=== PATIENT | male | born 1955 | race Caucasian/White ===

== ENCOUNTER 2017-07-02 13:50 | Observation (INO) | payer BC ==
[~2017-07-02] VITALS: Ht 182.9 cm; Wt 110.7 kg
--- NOTE | ~2017-07-02 | ECH ---
Transthoracic Echocardiography Report (TTE) Demographics Patient Name SABRINA DARBY Date of Study 07/03/2017 Patient Number [id number] Visit Number [id number] Date of 1955 Room Number 427 Accession Number [id number] Gender Male Age 61 year(s) Referring Dereck Badillo Manager Intermediate Kayla Huerta [facility] Physician Physician Interpreting Dereck Sung Segmental Wall Installer Physician MD Supervising Ordering Physician Khushi RICHEY MD/MLP Nurse Stress Base Loader Conclusions Summary Technically adequate exam. The estimated left ventricular ejection fraction is 60-65%. Mild left ventricular hypertrophy. Procedure Type of Study TTE procedure Procedure Date Date: 07/03/2017 Start: 10:42 AM Technical Quality: Adequate visualization Indications:Atypical Chest Pain. Appropriate Use Criteria: 9 Height: 72 inches Weight: 244 pounds BSA: 2.32 m Rhythm: Within normal limits HR: 80 bpm BP: 160/101 mmHg M-Mode/2D Measurements LV Diastolic Dimension: 4.49 cm LV Systolic Dimension: 3.03 cm LV Septum Diastolic: 1.39 cm LV PW Diastolic: 1.13 cm AO Root Dimension: 3.18 cm Cardiac Output: 5.19 l/min LA Dimension: 3.8 cm Cardiac Index: 2.24 l/min*m RV Diastolic Dimension: 3.47 cm LA volume index: 19 ml/m LVOT: 2.31 cm LVOT VTI: 15.49 cm RV Base: 3 cm LV Stroke volume: 64.89 ml RV Mid: 1.8 cm LV Stroke volume index: 27.97 ml/m RV Length: 7.3 cm TAPSE: 1.9 cm TDI-S': 14 cm/s Doppler Measurements AV Peak Velocity: 1.01 m/s MV Peak E-Wave: 0.54 m/s AV Peak Gradient: 4.05 mmHg MV Peak A-Wave: 0.62 m/s AV Mean Gradient: 2.4 mmHg MV E/A Ratio: 0.87 LVOT Peak Velocity: 0.76 m/s MV P1/2t: 79.7 msec AV Area (Continuity):3.25 cm MV Deceleration Time: 261.1 msec MV Area (PHT): 2.76 cm PV Peak Velocity: 1.32 m/s E' Septal Velocity: 0.09 m/s PV Peak Gradient: 6.97 mmHg E' Lateral Velocity: 0.09 m/s RA Area: 12.41 cm Findings Left Ventricle The left ventricle is normal in size . Mild left ventricular hypertrophy. Diastolic function indeterminate. Right Ventricle Normal right ventricle structure and function. Left Atrium Normal left atrial size. Right Atrium Normal right atrial size. Mitral Valve Normal mitral valve structure and function. Aortic Valve Normal aortic valve structure and function. Tricuspid Valve Normal tricuspid valve structure and function. Trivial tricuspid regurgitation by color Doppler. Pulmonic Valve The pulmonic valve is not well visualized. No pulmonic valve regurgitation by color Doppler. Pericardial Effusion No evidence of pericardial effusion. Miscellaneous Visualized portions of the aortic root and ascending aorta appear normal in size. Pleural Effusion No evidence of pleural effusion. Contractility Score LV regional wall motion:(0-Non visualized 1-Normal 2-Hypokinesis 3-Akinesis 4-Dyskinesis 5-Aneurysm) Signature
--- NOTE | ~2017-07-02 | CO ---
ADMIT: 07/02/2017 RM/LOC: 427 [facility] MR#: [id number] [address] [address] SABRINA DARBY [address] [place] [id number] Consultation SEX: M AGE: 61 : 1955 DATE OF CONSULTATION: 07/03/2017 ATTENDING PHYSICIAN: Ronald Hardne MD CONSULTING PHYSICIAN: Jhonny Peck MD HISTORY OF PRESENT ILLNESS: The patient is a 61-year-old male, who presents to [facility] with chief complaint of chest pain. The patient states that the chest pain started approximately 4 or 5 days ago and is exertional in origin. 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 He states that before work every morning chest pain is absent; however, as the day progresses at his job, chest pain does re-present and lingers throughout the rest of the day. He describes the chest pain, rating it at 4 to 5, associated with some diaphoresis, shortness of breath, and some radiation through the shoulders. He otherwise has a negative cardiac history, so he is not able to take nitroglycerin at home for the pain; however, he does state that he takes NSAIDs in the form of Aleve 2 tabs every day, which does not provide relief. He also states that he has never been diagnosed with GERD, and that this chest pain is not related to food intake, but he does do [id number] treatment in the form of Maalox and Rolaids, neither of which provided significant relief. This past Friday, he stated that his chest pain was worse than it had been and was lingering longer than it normally did, so he presented to a local urgent care clinic, who subsequently sent him to the [facility]. In the ED, a chest pain protocol was initiated. Electrolytes and renal function were within normal limits. Troponin was negative. Creatine kinase was elevated at 629. MB was elevated at 9.5. Chest x-ray was also completed, which was a negative review. CBC was within normal limits. He was subsequently admitted for rule out cardiac pathology. This morning, patient denies significant chest pain, shortness of breath, palpitations, edema, or syncopal episodes. EKG was completed early this morning and was indicative of normal sinus rhythm with borderline left axis deviation, not suspicious for acute pathology. CK and MB were also drawn this morning, which have been shown to be trending down with creatine kinase being 418, and MB being 6.2. Troponin is still within normal limits. The patient otherwise has no acute questions or concerns at this time. PAST MEDICAL HISTORY: Pertinent for: 1. Hypertension. 2. Hyperlipidemia. 3. Chronic low back pain. 4. Recurrent nephrolithiasis. 5. Nonorganic sleep apnea. 6. History of seizure disorder. 7. BPH. PAST SURGICAL HISTORY: Pertinent for lumbar fusion L4-L5 in 2013, as well as multiple stents, and shockwave lithotripsy for kidney stones. ADMIT: 07/02/2017 RM/LOC: 427 [facility] MR#: [id number] [address] [place] [id number] SABRINA DARBY [address] [place] [address] Consultation SEX: M AGE: 61 : 1955 FAMILY HISTORY: Noncontributory for cardiac pathology. SOCIAL HISTORY: The patient is , and he and his live here in [place]. As stated above, he works for the [employer]. Alcohol: The patient has been sober for over 30 years for which he said he would drink approximately a six-pack per night. He also quit smoking approximately 30 years ago with habit of a pack a day for approximately two years. He does also have a history of illicit drug abuse. He mentions marijuana, LSD, speed, and "whatever else he could get his hands on at that time." He had never injected drugs. Only states that he would snort or take tablets. He has been clean for the past 30 years as well. MEDICATIONS: 1. Flomax 0.4 mg daily. 2. Flonase 1 spray daily p.r.n. 3. Fish oil 1000 mg daily. 4. Olopatadine 0.1% one GTT b.i.d. p.r.n. 5. Colace 100 mg b.i.d. p.r.n. 6. Maalox 30 mL q.6 p.r.n. 7. Tylenol 650 mg q.4 p.r.n. ALLERGIES: NO KNOWN ALLERGIES. REVIEW OF SYSTEMS: Per Dr. Jhonny Peck: GENERAL: Denies fatigue, fever, chills, sweats, rash, or weight loss. EYES: Denies double vision, blurred vision, cataracts, or glaucoma. ENT: Denies hearing loss or problems with nose, mouth or throat. PULMONARY: Denies cough, sputum production, asthma, emphysema or bronchitis. Denies snoring loudly, wakefulness at night, or fatigue upon awakening. The patient has mild chest pain. GASTROINTESTINAL: Denies heartburn or difficulty swallowing. No change in bowel habits. Denies dark or bloody stools. No history of ulcers, hiatal hernia, or gallbladder or liver disease. GENITOURINARY: Denies dysuria, hematuria, nocturia, urinary tract infection, or kidney stones. Denies history of renal insufficiency or failure. MUSCULOSKELETAL: Denies history of arthritis or gout. Denies muscle or joint pains. ENDOCRINE: Denies history of thyroid dysfunction or diabetes. HEMATOLOGIC: Denies history of anemia, easy bruising, or cancer. NEUROLOGIC: Denies chronic headaches, dizziness, syncope, stroke, seizures or numbness or tingling. PSYCHIATRIC: Denies history of mental illness or feelings of depression. PHYSICAL EXAMINATION: Per Dr. Jhonny Peck: VITAL SIGNS: Temp 97.8, pulse 81, respirations 16, blood pressure 160/101, O2 ADMIT: 07/02/2017 RM/LOC: [address] [place] [address] MR#: [id number] [address] [facility] [address] [place], [place] [address] SABRINA DARBY [address] [place] [address] Consultation SEX: M AGE: 61 : 1955 saturation 94. I's and O's 370 mL in, 450 mL out, for a net -80 mL. SKIN: [place], warm and dry. EYES: Sclerae clear. No xanthelasmas. ENT: Oral mucosa is pink and moist. No jugular venous distention or carotid bruits. CHEST: Respirations are even and unlabored. Lungs are clear to auscultation. HEART: Regular rate and rhythm. Normal S1, S2. No murmurs, rubs or gallops. ABDOMEN: Soft and nontender. MUSCULOSKELETAL: Gait is normal. EXTREMITIES: Peripheral pulses palpable. No clubbing, cyanosis or edema. PSYCHIATRIC: Alert and oriented. Mood and affect are appropriate. LABORATORY DATA: Lipid profile; total cholesterol 217, triglycerides 93, HDL 41, LDL 157. Creatine kinase 418, MB 6.2, troponin less than 0.015. CRP less than or equal to 0.29. ASSESSMENT AND PLAN: 1. Chest pain. 2. HLP. 3. Hypertension. We will plan to do echo today, and if normal, we will do outpatient exercise stress test in a.m. If abnormal, we will need to do a heart catheterization. So, we have staffed on a statin for hyperlipidemia. He also will need to be on something for his hypertension. KUSUM Edmond Student / Jhonny Peck MD / homero JOB #: [id number] CC: Ronald Harden MD, Attending Physician Ronald Harden MD, Family Physician
--- NOTE | ~2017-07-02 | ER ---
ADMIT: 07/02/2017 RM/LOC: 427 [facility] MR#: [id number] 26[address] [facility] [phone] SABRINA DARBY [address] [place] [address] Emergency Room Report SEX: M AGE: 61 : 1955 DATE: 07/02/2017 ADDENDUM: A 61-year-old white male coming with chest pain on and off. It radiates bilaterally to his arms. We gave him nitroglycerin here and it seemed to help. Maybe exertion is causing this. However, while his troponin was negative, he had an elevated CPK-MB of 9.5. EKG chest, nothing otherwise. I spoke with Dr. Harden, we are going to admit him as a rule out. CONDITION ON DISCHARGE: Good. Donald Espinal MD/ homero JOB #: [id number] CC: Ronald Harden MD, Attending Physician Ronald Harden MD, Family Physician
--- NOTE | 2017-07-03 08:10 | HP ---
ADMIT: 07/02/2017 RM/LOC: 427 [facility] MR#: [id number] [address] [address] SABRINA DARBY [address] [place] [address] History and Physical SEX: M AGE: 61 : 1955 DATE OF SERVICE: CHIEF COMPLAINT: A 4 to 5 day history of burning chest pain. HISTORY OF PRESENT ILLNESS: Mr. 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 He states that 4 to 5 days ago, he started having the onset of "some stinging" substernal chest pain that were occasionally felt more like pressure. It seemed to radiate to both shoulders. It was not associated with shortness of breath, nausea, or diaphoresis. He states "It just did not go away." So he went to one of our local urgent care who, after they heard the story, sent him to the emergency room. In the emergency room, his chest x-ray was negative. The EKG was benign and his initial laboratory studies were also normal, but on cardiac enzyme testing, his troponin was less than 0.015 (normal), but his total CK was 629 U/L (normal 40 to 310) with an MB fraction of 9.5 mg/mL (normal 0.0 to 3.6). His chemistry testing was otherwise negative, and his CBC was normal. He was admitted for further evaluation and treatment. In the emergency room, he was having discomfort which was relieved by a single sublingual nitroglycerin. PAST MEDICAL HISTORY: 1. He carries a diagnosis of mild hyperlipidemia, but is currently not on any medications for it. 2. He has had chronic low back pain and underwent a minimally invasive transforaminal lumbar interbody fusion L4-L5 in May of [address] Bills. 3. He has had recurrent nephrolithiasis and is status post multiple stents and episodes of ESWL. Last episode was in the fall of 2016. 4. A diagnosis of nonorganic sleep apnea was made years ago, and he has been using CPAP for the last few years under the direction of Dr. Ward. 5. He has a chronic sinusitis and occasionally requires ENT evaluation. 6. He has had a history of several vasovagal episodes with some concern for seizure, but has not turned out to be the case. 7. He has mild benign prostatic hypertrophy. CURRENT MEDICATIONS: From our last office note of 11/06/2016 include: 1. Acetaminophen 500 mg b.i.d. 2. Fish oil 1000 mg daily. 3. Flaxseed oil 1000 mg b.i.d. 4. Multivitamin one daily. 5. Tamsulosin 0.4 mg daily. 6. Benadryl 25 mg daily. 7. Levitra p.r.n. ALLERGIES: THERE ARE NO ALLERGIES REPORTED. SOCIAL HISTORY: Reveals that he has been sober from alcohol for 30+ years. He quit smoking at about the same time. As noted above, he works for the [employer]. He and his live in their home here in [place]. ADMIT: 07/02/2017 RM/LOC: 427 [facility] MR#: [id number] [address] [place] [phone] SABRINA DARBY [address] [place] [address] History and Physical SEX: M AGE: 61 : 1955 FAMILY HISTORY: Negative for cardiac disease. REVIEW OF SYSTEMS: Review of systems x10 point is otherwise negative. PHYSICAL EXAMINATION: GENERAL: He is alert and talkative, in no apparent distress. SKIN: Warm and dry. His color is good. VITAL SIGNS: Blood pressure in the ER were noted as in the 160/105 range with a respiratory rate of 16. He is afebrile. O2 sats were 98% on room air. HEENT: Negative. NECK: Supple. Good pulses. No bruits. No thyromegaly. LUNGS: Clear to auscultation. CARDIAC: Shows regular rhythm. I do not detect an obvious murmur, S3, S4, click, or rub. ABDOMEN: Flat. Normal bowel sounds. No masses, tenderness, or organomegaly. GENITAL AND RECTAL: Not done. LOWER EXTREMITIES: Show good pulses. No edema. NEUROLOGIC: Essentially normal on mini neurologic. IMPRESSION: 1. Atypical chest pain (but relieved by nitroglycerin). 2. Mild lipid abnormality by history. 3. Chronic low back pain, status post right L4-5 fusion, April 2015. 4. History of recurrent nephrolithiasis, not a current issue. 5. Obstructive sleep apnea, on CPAP. 6. History of chronic sinusitis. 7. 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 8. Distant history of tobacco abuse. PLAN: He has been admitted OPO for telemetry monitoring. We will trend his enzymes and do other baseline labs. We will seek Cardiology consultation. Further treatment will depend on his response to our initial therapies and workup. Ronald Harden MD/ homero JOB #: [id number] CC: Ronald Harden, Attending Physician Ronald Harden, Family Physician
[2017-07-03] MEDS ORDERED: FISH OIL 1,0001 EACH PO (20:37)
[2017-07-03] MEDS ORDERED: FLOMAX DPS0.4 MG PO (20:37)
[2017-07-03] MEDS ORDERED: TYLENOL DPS325 MG PO (20:38)
[2017-07-03] MEDS ORDERED: FLONASE 0.05% D16 GM NS (20:38)
[2017-07-03] MEDS ORDERED: MAALOX DPS30 ML PO (20:38)
[2017-07-03] MEDS ORDERED: COLACE-DPS100 MG PO (20:38)
[2017-07-03] MEDS ORDERED: PRILOSEC DPS20 MG PO (20:38)
[2017-07-03] MEDS ORDERED: PATANOL 0.1%5 ML OU (20:38)
[2017-07-03] MEDS ORDERED: LIPITOR DPS10 MG PO (20:39)
[2017-07-03] MEDS ORDERED: ASA CHILDREN'S81 MG PO (20:39)
[2017-07-03] MEDS ORDERED: NORVASC5 MG PO (20:39)
== END 2017-07-03 12:15 | disposition home or self-care (01) ==
LOC: ER 13:50 → 4PCU 15:30
PROVIDERS: ADMIT Family Medicine
DX: R07.89 Other chest pain (principal); I10 Essential (primary) hypertension; E78.5 Hyperlipidemia, unspecified; G89.29 Other chronic pain; M54.5 Low back pain; G47.33 Obstructive sleep apnea (adult) (pediatric); Z99.89 Dependence on other enabling machines and devices; Z79.899 Other long term (current) drug therapy; Z87.442 Personal history of urinary calculi